=== PATIENT | male | born 1995 ===

== ENCOUNTER → 2016-10-18 | Outpatient (REF) | LOC: WSOH 12:48 | DX: Z02.1 Encounter for pre-employment examination (principal) ==

== ENCOUNTER → 2016-10-20 | Outpatient (REF) | LOC: WSOH 13:08 | DX: Z23 Encounter for immunization (principal) ==

== ENCOUNTER → 2016-10-20 | Outpatient (REF) | LOC: WSOH 14:47 | DX: Z02.89 Encounter for other administrative examinations (principal) ==

== ENCOUNTER → 2016-10-20 | Outpatient (REF) | LOC: WSPT 12:41 | DX: Z02.89 Encounter for other administrative examinations (principal) ==

== ENCOUNTER → 2016-11-21 | Outpatient (REF) | LOC: WSOH 09:07 | DX: Z01.84 Encounter for antibody response examination (principal) ==

== ENCOUNTER → 2017-01-07 | Outpatient (REF) | LOC: WSOH 17:00 | DX: Z02.89 Encounter for other administrative examinations (principal) ==